=== PATIENT | female | born 1995 | race American Indian/Alaskan Native ===

== ENCOUNTER 2020-06-14 11:59 | Emergency (ER) | payer SELFPAY ==
[2020-06-14 12:31] VITALS: BP 126/92
--- NOTE | 2020-06-14 12:37 | Emergency Department Report ---
ED Lower Extremity HPI - General Chief Complaint: Extremity Injury, Lower Stated Complaint: ANKLE PAIN Time Seen by Provider: 06/14/20 12:29 Source: patient Mode of arrival: Ambulatory Limitations: No Limitations - History of Present Illness Initial Comments: This is a 25-year-old female nontoxic, well nourished in appearance, no acute signs of distress presents to the ED with c/o of left ankle pain. Patient stated had she twisted it 3 days ago. Patient denies any new trauma or injuries. Denies decreased ROM, joint swelling, redness, or abnormal gait. Denies any fever, chills, nausea, vomiting, headache, stiff neck, chest pain or shortness of breath. Patient denies any numbness or tingling. Denies any allergies. MD Complaint: ankle injury -: days(s) Injury: Ankle: Left Type of Injury: inversion Severity: mild Severity scale (0 -10): 8 Improves With: immobilization Worsens With: weight bearing, movement, palpation Associated Symptoms: swelling, able to partially bear weight. denies: snap/pop sensation, numbness, tingling, unable to bear weight - Related Data Previous Rx's Medication Instructions Recorded Last Taken Type Naproxen 500 mg PO Q12H PRN #12 tablet 06/14/20 Unknown Rx Allergies Allergy/AdvReac Type Severity Reaction Status Date / Time No Known Allergies Allergy Verified 06/14/20 12:01 ED Review of Systems ROS: Stated complaint: ANKLE PAIN Other details as noted in HPI Constitutional: denies: chills, fever Eyes: denies: eye pain, eye discharge, vision change ENT: denies: ear pain, throat pain Respiratory: denies: cough, shortness of breath, wheezing Cardiovascular: denies: chest pain, palpitations Endocrine: no symptoms reported Gastrointestinal: denies: abdominal pain, nausea, diarrhea Genitourinary: denies: urgency, dysuria, discharge Musculoskeletal: denies: back pain, joint swelling, arthralgia Skin: denies: rash, lesions Neurological: denies: headache, weakness, paresthesias Psychiatric: denies: anxiety, depression Hematological/Lymphatic: denies: easy bleeding, easy bruising ED Past Medical Hx - Past Medical History Previous Medical History?: No - Surgical History Past Surgical History?: Yes Additional Surgical History: left knee surgery - Social History Smoking Status: Current Every Day Smoker - Medications Home Medications: Home Medications Medication Instructions Recorded Confirmed Last Taken Type Naproxen 500 mg PO Q12H PRN #12 tablet 06/14/20 Unknown Rx ED Physical Exam - General Limitations: No Limitations General appearance: alert, in no apparent distress - Head Head exam: Present: atraumatic, normocephalic - Neck Neck exam: Present: normal inspection, full ROM. Absent: tenderness, meningismus, lymphadenopathy - Extremities Exam Extremities exam: Present: full ROM, tenderness, normal capillary refill, other (negative mchugh test, left). Absent: joint swelling, calf tenderness - Expanded Lower Extremity Exam Left Hip exam: Present: normal inspection, full ROM. Absent: tenderness, swelling Upper Leg exam: Present: normal inspection, full ROM. Absent: tenderness, swelling Knee exam: Present: normal inspection, full ROM. Absent: tenderness, swelling Lower Leg exam: Present: normal inspection, full ROM. Absent: tenderness, swelling Ankle exam: Present: full ROM, tenderness, swelling. Absent: abrasion, laceration, ecchymosis, deformity, crepidus, dislocation, erythema, anterior draw sign Foot/Toe exam: Present: full ROM. Absent: tenderness, swelling Neuro vascular tendon exam: Present: no vascular compromise Gait: Positive: observed and limited by pain - Back Exam Back exam: Present: normal inspection, full ROM. Absent: tenderness, CVA tenderness (R), CVA tenderness (L), muscle spasm, paraspinal tenderness, vertebral tenderness, rash noted - Neurological Exam Neurological exam: Present: alert, oriented X3, normal gait - Psychiatric Psychiatric exam: Present: normal affect, normal mood - Skin Skin exam: Present: warm, dry, intact, normal color. Absent: rash ED Course Vital Signs 06/14/20 06/14/20 12:29 12:44 Temperature 98.2 F Pulse Rate 112 H 100 H Respiratory 20 Rate Blood Pressure 126/92 O2 Sat by Pulse 100 Oximetry - Reevaluation(s) Reevaluation #1: 06/14/20 12:35 Patient is speaking in full sentences with no signs of distress noted. ED Lower Extremity MDM - Radiology Data Referring Physician: BRYAN BATISTA Patient Name: RODRICK GRAVES Date of : 1995 Sex: Female Report Date: 2020-06-14 Report Status: Finalized [facility] [address] [place] [address] XRay Report Signed Patient: RODRICK GRAVES MR#: [id number] : 1995 Acct:[id number] Age/Sex: 25 / F ADM Date: 06/14/20 Loc: ED Attending Dr: Ordering Physician: BRYAN BATISTA NP Date of Service: 06/14/20 Procedure(s): XR ankle 3+V LT Accession Number(s): [id number] cc: BRYAN BATISTA NP Fluoro Time In Minutes: LEFT ANKLE 3 VIEW(S) INDICATION / CLINICAL INFORMATION: ankle pain COMPARISON: None available. FINDINGS: BONES / JOINT(S): Small inferior calcaneal enthesophyte No definite acute fracture or subluxation. No significant arthritis. SOFT TISSUES: No significant abnormality. ADDITIONAL FINDINGS: None. IMPRESSION: 1. No definite acute fracture or dislocation. Consider further evaluation as clinically warranted. Signer Name: Rosa M Aburto MD Signed: 06/14/2020 1:14 PM Workstation Name: [email or web address] Transcribed By: RH Dictated By: ROSA M ABURTO III Electronically Authenticated By: ROSA M ABURTO III Signed Date/Time: 06/14/20 1314 DD/ 1312 TD/TT: - Medical Decision Making This is a 25-year-old female that presents with left ankle sprain. Patient is stable and was examined by me. Xray has been told to the patient with no questions noted by the patient. No joint effusion, no redness, no decreased ROM. Normal gait. received LASHAUN wrap. Patient was instructed to Follow-up with a orthopedic doctor in 3-5 days or if symptoms worsen and continue return to emergency room as soon as possible. At time of discharge, the patient does not seem toxic or ill in appearance. No acute signs of distress noted. Patient agrees to discharge treatment plan of care. No further questions noted by the patient. Critical care attestation.: If time is entered above; I have spent that time in minutes in the direct care of this critically ill patient, excluding procedure time. ED Disposition Clinical Impression: Left ankle sprain Qualifiers: Encounter type: initial encounter Involved ligament of ankle: unspecified ligament Qualified Code(s): S93.402A - Sprain of unspecified ligament of left ankle, initial encounter Disposition: - TO HOME OR SELFCARE Is pt being admited?: No Does the pt Need Aspirin: No Condition: Stable Instructions: Ankle Sprain (ED), RICE Therapy (ED) Additional Instructions: Follow-up with a orthopedic doctor in 3-5 days or if symptoms worsen and continue return to the emergency department as soon as possible. No physical activity until cleared by orthopedic doctor. Prescriptions: Naproxen 500 mg PO Q12H PRN #12 tablet PRN Reason: Pain , Severe (7-10) Referrals: PRIMARY CARE, [Primary Care Provider] - 3-5 Days ROSA M KELLER MD [Staff Physician] - 3-5 Days Forms: Work/School Release Form(ED)
--- NOTE | 2020-06-14 13:19 | XRay Report ---
LEFT ANKLE 3 VIEW(S) INDICATION / CLINICAL INFORMATION: ankle pain COMPARISON: None available. FINDINGS: BONES / JOINT(S): Small inferior calcaneal enthesophyte No definite acute fracture or subluxation. No significant arthritis. SOFT TISSUES: No significant abnormality. ADDITIONAL FINDINGS: None. IMPRESSION: 1. No definite acute fracture or dislocation. Consider further evaluation as clinically warranted. Signer Name: Nemesio Aburto MD Signed: 06/14/2020 1:14 PM Workstation Name: [id number]
== END 2020-06-14 14:01 | disposition home or self-care (01) ==
LOC: ED 11:59
DX: S93.402A Sprain of unspecified ligament of left ankle, initial encounter (principal); F17.200 Nicotine dependence, unspecified, uncomplicated; X50.9XXA Other and unspecified overexertion or strenuous movements or postures, initial encounter; Y93.89 Activity, other specified; Y92.89 Other specified places as the place of occurrence of the external cause; Y99.8 Other external cause status
CPT/HCPCS: 99283

== ENCOUNTER 2020-07-30 22:07 | Emergency (ER) | payer SELFPAY ==
--- NOTE | 2020-07-31 00:21 | XRay Report ---
CHEST PA AND LATERAL VIEWS INDICATION: MAIN. COMPARISON: None FINDINGS: Support devices: None Heart: Normal Lungs/Pleura: No acute pulmonary or pleural findings. IMPRESSION: 1. No significant abnormality. Signer Name: Carlos Davis MD Signed: 07/31/2020 12:16 AM Workstation Name: [id number]
[2020-07-31] MEDS ORDERED: ACETAMINOPHEN 325 MG TAB PO ONE (02:03)
--- NOTE | 2020-07-31 04:11 | Emergency Department Report ---
- General Chief Complaint: Chest Pain Stated Complaint: CHEST PAIN HEADACHE HIGH HR HBP Source: patient Mode of arrival: Ambulatory Limitations: No Limitations - History of Present Illness Initial Comments: Patient is a 25-year-old -Niue[place] female with a history of heavy tobacco abuse who presents to the ED with complaint of acute onset persistent nasal and sinus congestion, frontal sinus pressure and headache, persistent dry cough with wheezing intermittently for the last 1 week, worse in the last 2 days. Patient also complains of pleuritic chest pain with every episode of cough. Patient d enies fever, chills, nausea, vomiting, sore throat, dizziness, syncope, shortness of breath, abdominal pain, diaphoresis, change in vision, back pain, dysuria, urinary frequency and urgency or diarrhea. MD Complaint: cough, rhinorrhea, nasal congestion, sinus pain, other (Pleuritic chest pain) -: Sudden, week(s) (1) Severity: moderate Severity scale (0 -10): 4 Quality: sharp, aching Consistency: intermittent Improves With: nothing Worsens With: nothing Associated Symptoms: denies other symptoms, headache, rhinorrhea, nasal congestion, cough, chest pain. denies: fever, chills, myalgias, diaphoresis, sore throat, stiff neck, shortness of breath, abdominal pain, vomiting, diarrhea, rash, right sweats, weight loss, hoarseness Treatments Prior to Arrival: none - Related Data Previous Rx's Medication Instructions Recorded Last Taken Type Naproxen 500 mg PO Q12H PRN #12 tablet 06/14/20 Unknown Rx Azithromycin [Zithromax Z-CARI] 250 mg PO DAILY #6 tablet 07/31/20 Unknown Rx Benzonatate [Tessalon Perles] 100 mg PO Q8HR #30 capsule 07/31/20 Unknown Rx Ibuprofen [Motrin] 800 mg PO Q8HR PRN #20 tablet 07/31/20 Unknown Rx predniSONE [Deltasone] 40 mg PO QDAY #10 tab 07/31/20 Unknown Rx Allergies Allergy/AdvReac Type Severity Reaction Status Date / Time No Known Allergies Allergy Verified 06/14/20 12:01 ED Review of Systems ROS: Stated complaint: CHEST PAIN HEADACHE HIGH HR HBP Other details as noted in HPI Constitutional: denies: chills, fever Eyes: denies: eye pain, eye discharge, vision change ENT: congestion. denies: ear pain, throat pain, dental pain, hearing loss Respiratory: cough. denies: shortness of breath, SOB with exertion, wheezing Cardiovascular: denies: chest pain, palpitations Endocrine: no symptoms reported Gastrointestinal: denies: abdominal pain, nausea, diarrhea Genitourinary: denies: urgency, dysuria, discharge Musculoskeletal: denies: back pain, joint swelling, arthralgia Skin: denies: rash, lesions Neurological: headache. denies: weakness, paresthesias Psychiatric: denies: anxiety, depression Hematological/Lymphatic: denies: easy bleeding, easy bruising ED Past Medical Hx - Past Medical History Previous Medical History?: No - Surgical History Past Surgical History?: Yes Additional Surgical History: left knee surgery - Social History Smoking Status: Current Every Day Smoker Substance Use Type: None - Medications Home Medications: Home Medications Medication Instructions Recorded Confirmed Last Taken Type Naproxen 500 mg PO Q12H PRN #12 tablet 06/14/20 Unknown Rx Azithromycin [Zithromax Z-CARI] 250 mg PO DAILY #6 tablet 07/31/20 Unknown Rx Benzonatate [Tessalon Perles] 100 mg PO Q8HR #30 capsule 07/31/20 Unknown Rx Ibuprofen [Motrin] 800 mg PO Q8HR PRN #20 tablet 07/31/20 Unknown Rx predniSONE [Deltasone] 40 mg PO QDAY #10 tab 07/31/20 Unknown Rx ED Physical Exam - General Limitations: No Limitations General appearance: alert, in no apparent distress - Head Head exam: Present: atraumatic, normocephalic, normal inspection - Eye Eye exam: Present: normal appearance, PERRL, EOMI Pupils: Present: normal accommodation - ENT ENT exam: Present: normal orophraynx, mucous membranes moist, TM's normal bilaterally, normal external ear exam, other (Grossly congested nasal passages; palpable frontal sinus tenderness) - Neck Neck exam: Present: normal inspection, full ROM. Absent: tenderness, lymp hadenopathy - Respiratory Respiratory exam: Present: normal lung sounds bilaterally. Absent: respiratory distress, wheezes, rhonchi, stridor, chest wall tenderness, accessory muscle use - Cardiovascular Cardiovascular Exam: Present: normal rhythm, tachycardia, normal heart sounds. Absent: systolic murmur, diastolic murmur, rubs, gallop - GI/Abdominal GI/Abdominal exam: Present: soft, normal bowel sounds. Absent: distended, tenderness, rebound, hyperactive bowel sounds, hypoactive bowel sounds, organomegaly - Extremities Exam Extremities exam: Present: normal inspection, full ROM, normal capillary refill - Back Exam Back exam: Present: normal inspection, full ROM. Absent: tenderness, CVA tenderness (R), CVA tenderness (L), muscle spasm, paraspinal tenderness - Neurological Exam Neurological exam: Present: alert, oriented X3, CN II-XII intact, normal gait, reflexes normal - Psychiatric Psychiatric exam: Present: normal affect, normal mood - Skin Skin exam: Present: warm, dry, intact, normal color. Absent: rash ED Course Vital Signs 07/30/20 23:17 Temperature 97.9 F Pulse Rate 109 H Respiratory 16 Rate Blood Pressure 132/98 O2 Sat by Pulse 100 Oximetry ED Medical Decision Making - Radiology Data Radiology results: report reviewed, image reviewed Findings [address] [address] XRay Report Signed Patient: RODRICK GRAVES MR#: [id number] : 1995 Acct:[id number] Age/Sex: 25 / F ADM Date: 07/30/20 Loc: ED Attending Dr: Ordering Physician: ED MD SPENSER Date of Service: 07/30/20 Procedure(s): XR chest routine 2V Accession Number(s): [id number] cc: ED MD SPENSER Fluoro Time In Minutes: CHEST PA AND LATERAL VIEWS INDICATION: MAIN. COMPARISON: None FINDINGS: Support devices: None Heart: Normal Lungs/Pleura: No acute pulmonary or pleural findings. IMPRESSION: 1. No significant abnormality. Signer Name: Carlos Davis MD Signed: 07/31/2020 12:16 AM Workstation Name: [id number] Transcribed By: TM Dictated By: Carlos Davis MD Electronically Authenticated By: Carlos Davis MD Signed Date/Time: 07/31/2015 DD/ 001 TD/TT: - Medical Decision Making This is a 25-year-old -Niue[place] female with a history of heavy tobacco abuse who presents to the ED with complaint of acute onset persistent nasal and sinus congestion, frontal sinus pressure and headache, persistent dry cough with wheezing intermittently for the last 1 week, worse in the last 2 days. Patient also complains of pleuritic chest pain with every episode of cough. In the ED, patient is alert and oriented x3 and is not in distress. Chest x-ray shows no acute cardiopulmonary abnormalities or pneumonitis. Patient was discharged home on medications and advised to follow-up with her primary care physician in 5 to 7 days for reevaluation or return to the ED immediately if symptoms get worse. - Differential Diagnosis Bronchitis; pneumonia; sinusitis; URI; Critical care attestation.: If time is entered above; I have spent that time in minutes in the direct care of this critically ill patient, excluding procedure time. ED Disposition Clinical Impression: Acute non-recurrent frontal sinusitis, Acute upper respiratory infection Acute bronchitis Qualifiers: Bronchitis organism: other organism Qualified Code(s): J20.8 - Acute bronchitis due to other specified organisms Disposition: DC- TO HOME OR SELFCARE Is pt being admited?: No Does the pt Need Aspirin: No Condition: Stable Instructions: Acute Bronchitis (ED), Acute Bacterial Rhinosinusitis (ED), Upper Respiratory Infection (ED) Additional Instructions: Chest x-ray shows no acute cardiopulmonary abnormalities or pneumonitis. Therefore take medications as advised, drink plenty of fluids and follow-up with your primary care physician in 5 to 7 days for reevaluation. Return to the ED immediately if symptoms get worse. Consider quitting tobacco smoking habit. Prescriptions: predniSONE [Deltasone] 40 mg PO QDAY #10 tab Ibuprofen [Motrin] 800 mg PO Q8HR PRN #20 tablet PRN Reason: Pain , Severe (7-10) Benzonatate [Tessalon Perles] 100 mg PO Q8HR #30 capsule Azithromycin [Zithromax Z-CARI] 250 mg PO DAILY #6 tablet Referrals: [facility] [Provider Group] - 3-5 Days Time of Disposition: 04:11 Print Language: TURKMEN
[2020-07-31 04:41] VITALS: BP 127/83
== END 2020-07-31 04:41 | disposition home or self-care (01) ==
LOC: ED 22:07
DX: J01.10 Acute frontal sinusitis, unspecified (principal); J20.9 Acute bronchitis, unspecified; F17.200 Nicotine dependence, unspecified, uncomplicated; Z79.899 Other long term (current) drug therapy
CPT/HCPCS: 71046; 93005; 99283

== ENCOUNTER 2021-03-30 17:47 | Emergency (ER) | payer SELFPAY ==
[2021-03-30 19:26] VITALS: BP 112/67
--- NOTE | 2021-03-30 19:58 | Emergency Department Report ---
Upper Extremity - HPI Chief Complaint: Extremity Injury, Upper Stated Complaint: RIGHT SHOULDER PAIN, LEFT FINGER PAIN Time Seen by Provider: 03/30/21 19:54 Upper Extremity: Right Shoulder Occurred When: 1 Day Mechanism: Other (lifting) Symptoms: Yes Pain with Movement, Yes Limited Range of Movement, No Deformity, No Numbness, No Weakness, No Swelling, No Bruising/Ecchymosis, No Laceration or Abrasion Other History: Patient presents to the ER today with complaints of right shoulder pain. Patient states that the pain started last night while she was at work. She states that she had been repeatedly lifted and pans of shaking at work when it started hurting. She is also feeling a popping sensation in her shoulder. Patient states that when she woke up this morning she could not hardly lift her shoulder. She states she has been taking ibuprofen without much relief of pain. She states that she did dislocate once when she was a child but did not have to have any surgery. She reports no other symptoms at this time. ED Review of Systems ROS: Stated complaint: RIGHT SHOULDER PAIN, LEFT FINGER PAIN Other details as noted in HPI Comment: All other systems reviewed and negative Constitutional: denies: chills, fever Eyes: denies: eye pain, eye discharge, vision change ENT: denies: ear pain, throat pain, dental pain, hearing loss, epistaxis, congestion Respiratory: denies: cough, orthopnea, shortness of breath, SOB with exertion, SOB at rest, wheezing Cardiovascular: denies: chest pain, palpitations, dyspnea on exertion, edema, syncope, paroxysmal nocturnal dyspnea Gastrointestinal: denies: abdominal pain, nausea, vomiting, diarrhea, constipation, hematemesis, melena, hematochezia Genitourinary: denies: urgency, dysuria, frequency, hematuria, discharge, abnormal menses, dyspareunia Musculoskeletal: arthralgia Skin: denies: rash, lesions, change in color, change in hair/nails, pruritus Neurological: denies: headache, weakness, numbness, paresthesias, confusion, abnormal gait, vertigo Psychiatric: denies: anxiety, depression, auditory hallucinations, visual hallucinations, homicidal thoughts, suicidal thoughts Hematological/Lymphatic: denies: easy bleeding, swollen glands ED Past Medical Hx - Past Medical History Previous Medical History?: No - Surgical History Past Surgical History?: Yes Additional Surgical History: left knee surgery - Social History Smoking Status: Current Every Day Smoker Substance Use Type: None, Marijuana - Medications Home Medications: Home Medications Medication Instructions Recorded Confirmed Last Taken Type Ketorolac [Toradol] 10 mg PO Q6H PRN #20 tablet 03/30/21 Unknown Rx methOCARBAMOL [Robaxin TAB] 500 mg PO Q6H PRN #30 tablet 03/30/21 Unknown Rx Upper Extremity Exam - Exam General: Vital signs noted. No distress. Alert and acting appropriately. Head and Torso: No HEENT Abnormality, No Neck Tenderness, No Chest/Lungs Abnormality, No Abdominal Tenderness, No Back Tenderness Shoulder Exam: Yes Shoulder Tenderness (Moderate tenderness to palpation diffusely about the right shoulder), Yes AC Joint Tenderness (Right shoulder), No Clavicle Tenderness, No Normal Range of Motion in Shoulder (Range of motion of the shoulder reduced to about 90 degrees abduction.), No Shoulder Deformity Arm Exam: No Arm/Humerus Tenderness, No Arm Deformity Elbow: Yes Normal Range of Motion in Elbow, No Elbow Tenderness, No Elbow Deformity Forearm: No Forearm Tenderness, No Forearm Deformity, No Pain with Pronation, No Pain with Supination Wrist: Yes Normal ROM in Wrist, No Wrist Tenderness, No Wrist Deformity, No Snuffbox Tenderness, No Pain with Axial Thumb Compression Hand: Yes Normal ROM in Digit(s), No Hand Tenderness, No Hand Deformity, No Digit Tenderness, No Digit(s) Deformity, No Tendon Dysfunction CMS Exam: Yes Normal Distal Pulses, Yes Normal Capillary Refill, Yes Normal Distal Sensation, No Broken Skin ED Course Vital Signs 03/30/21 19:23 Temperature 98.1 F Pulse Rate 94 H Respiratory 18 Rate Blood Pressure 112/67 O2 Sat by Pulse 100 Oximetry ED Medical Decision Making - Radiology Data Radiology results: report reviewed Patient: RODRICK GRAVES MR#: [id number] : 1995 Acct:[id number] Age/Sex: 25 / F ADM Date: 03/30/21 Loc: ED Attending Dr: Ordering Physician: PONCHO PLATA Date of Service: 03/30/21 Procedure(s): XR shoulder 2+V RT Accession Number(s): [id number] cc: PONCHO PLATA Fluoro Time In Minutes: CLINICAL DATA: Right shoulder pain TECHNICAL DATA: AP internal, AP external, and Y views were obtained of the shoulder. FINDINGS: There is no acute fracture. The glenoid fossa humeral head articulation is normal. There is no acromioclavicular joint widening or offset. The coracoclavicular distance is normal. There are no significant degenerative changes. IMPRESSION: No acute radiographic abnormality. Signer Name: Lars Seay MD Signed: 03/30/2021 8:42 PM Workstation Name: [id number] Transcribed By: WG Dictated By: Lars Seay MD Electronically Authenticated By: Lars Seay MD Signed Date/Time: 03/30/212041 DD/ 41 TD/TT: Critical care attestation.: If time is entered above; I have spent that time in minutes in the direct care of this critically ill patient, excluding procedure time. ED Disposition Clinical Impression: Sprain of shoulder, right Disposition: DC-01 TO HOME OR SELFCARE Is pt being admited?: No Does the pt Need Aspirin: No Condition: Stable Instructions: Shoulder Sprain Additional Instructions: Take the toradol and the muscle relaxer as prescribed. Use the sling for no more than 2 days. Follow up with the grain origination specialist in 1 week if symptoms persist. Return to ED if worse. Prescriptions: methOCARBAMOL [Robaxin TAB] 500 mg PO Q6H PRN #30 tablet PRN Reason: Pain Ketorolac [Toradol] 10 mg PO Q6H PRN #20 tablet PRN Reason: Pain Referrals: ROSA M KELLER MD [Staff Physician] - 3-5 Days Forms: Work/School Release Form(ED) Time of Disposition: 20:57
--- NOTE | 2021-03-30 20:47 | XRay Report ---
CLINICAL DATA: Right shoulder pain TECHNICAL DATA: AP internal, AP external, and Y views were obtained of the shoulder. FINDINGS: There is no acute fracture. The glenoid fossa humeral head articulation is normal. There is no acromi oclavicular joint widening or offset. The coracoclavicular distance is normal. There are no significa nt degenerative changes. IMPRESSION: No acute radiographic abnormality. Signer Name: Lars Seay MD Signed: 03/30/2021 8:42 PM Workstation Name: [id number]
== END 2021-03-30 21:21 | disposition home or self-care (01) ==
LOC: ED 17:47
DX: S43.491A Other sprain of right shoulder joint, initial encounter (principal); F17.200 Nicotine dependence, unspecified, uncomplicated; F12.90 Cannabis use, unspecified, uncomplicated; Z98.890 Other specified postprocedural states; X50.0XXA Overexertion from strenuous movement or load, initial encounter; Y93.89 Activity, other specified; Y92.89 Other specified places as the place of occurrence of the external cause; Y99.8 Other external cause status
CPT/HCPCS: 99283

== ENCOUNTER 2021-09-19 20:44 | Emergency (ER) | payer SELFPAY ==
[2021-09-19 20:50] VITALS: BP 134/99
--- NOTE | 2021-09-19 21:29 | XRay Report ---
RIGHT ANKLE 4 VIEW(S) INDICATION / CLINICAL INFORMATION: ankle pain and swelling COMPARISON: None available. FINDINGS: BONES / JOINT(S): Oblique, moderately displaced fracture of the distal fibula. There is lateral angul ation of the distal fracture fragment and moderate displacement by approximately 0.7 cm. There is an avulsion fracture of the medial malleolus tip with widening of the medial clear space which measures approximately 1.4 cm. There is medial subluxation of the distal tibial plafond in relation to the julian us suggesting ligamentous disruption.. Follow-up is recommended given the severity of injury. SOFT TISSUES: Moderate soft tissue swelling about the ankle joint ADDITIONAL FINDINGS: None. Signer Name: Salvador Cheema MD Signed: 09/19/2021 9:24 PM Workstation Name: [id number]
[2021-09-19] MEDS ORDERED: MORPHINE 4 MG/1 ML INJ IM STA (21:39)
--- NOTE | 2021-09-19 21:40 | Emergency Department Report ---
ED Lower Extremity HPI - General Chief Complaint: Extremity Injury, Lower Stated Complaint: ANKLE PAIN Time Seen by Provider: 09/19/21 20:49 Source: patient Mode of arrival: Wheelchair Limitations: No Limitations - History of Present Illness Initial Comments: 26-year-old -[place] female was having good time in the yesterday and can with alcohol consumption resulting in a loss of balance and falling on the ground level an unknown fashion possibly twisting resulting in pain. She is noted some swelling to the right ankle ambulates ambulate. No numbness, no tingling pain is dull and throbbing 10 out of 10 MD Complaint: ankle injury -: Sudden (Yesterday) - Related Data Previous Rx's Medication Instructions Recorded Last Taken Type Ketorolac [Toradol] 10 mg PO Q6H PRN #20 tablet 03/30/21 Unknown Rx methOCARBAMOL [Robaxin TAB] 500 mg PO Q6H PRN #30 tablet 03/30/21 Unknown Rx Oxycodone HCl/Acetaminophen 1 each PO Q6HR PRN #14 tablet 09/19/21 Unknown Rx [Percocet 10/325 mg] Allergies Allergy/AdvReac Type Severity Reaction Status Date / Time No Known Allergies Allergy Verified 09/19/21 20:50 ED Review of Systems ROS: Stated complaint: ANKLE PAIN Other details as noted in HPI ED Past Medical Hx - Past Medical History Previous Medical History?: No - Surgical History Additional Surgical History: left knee surgery - Social History Smoking Status: Current Every Day Smoker Substance Use Type: None, Marijuana - Medications Home Medications: Home Medications Medication Instructions Recorded Confirmed Last Taken Type Ketorolac [Toradol] 10 mg PO Q6H PRN #20 tablet 03/30/21 Unknown Rx methOCARBAMOL [Robaxin TAB] 500 mg PO Q6H PRN #30 tablet 03/30/21 Unknown Rx Oxycodone HCl/Acetaminophen 1 each PO Q6HR PRN #14 tablet 09/19/21 Unknown Rx [Percocet 10/325 mg] ED Physical Exam - General Limitations: No Limitations ED Course Vital Signs 09/19/21 20:46 Temperature 98.6 F Pulse Rate 99 H Respiratory 18 Rate Blood Pressure 134/99 [Right] O2 Sat by Pulse 98 Oximetry - Orthopedic Splinting/Casting Injury #1 Side: right Lower Extremity Injury Location: ankle Lower Extremity Immobilizer: posterior splint, stirrup splint Other Orthopedic Equipment: crutches ED Lower Extremity MDM - Radiology Data Radiology results: report reviewed [facility] [address] [place] [address] XRay Report Signed Patient: RODRICK GRAVES MR#: [id number] : 1995 Acct:[id number] Age/Sex: 26 / F ADM Date: 09/19/21 Loc: ED Attending Dr: Ordering Physician: KAPIL MOSELEY Date of Service: 09/19/21 Procedure(s): XR ankle 3+V RT Accession Number(s): [id number] cc: KAPIL MOSELEY Fluoro Time In Minutes: RIGHT ANKLE 4 VIEW(S) INDICATION / CLINICAL INFORMATION: ankle pain and swelling COMPARISON: None available. FINDINGS: BONES / JOINT(S): Oblique, moderately displaced fracture of the distal fibula. There is lateral angulation of the distal fracture fragment and moderate displacement by approximately 0.7 cm. There is an avulsion fracture of the medial malleolus tip with widening of the medial clear space which measures approximately 1.4 cm. There is medial subluxation of the distal tibial plafond in relation to the talus suggesting ligamentous disruption.. Follow-up is recommended given the severity of injury. SOFT TISSUES: Moderate soft tissue swelling about the ankle joint ADDITIONAL FINDINGS: None. Signer Name: Salvador Cheema MD Signed: 09/19/2021 9:24 PM Workstation Name: [id number] Transcribed By: SB Dictated By: SALVADOR CHEEMA MD Electronically Authenticated By: SALVADOR CHEEMA MD Signed Date/Time: 09/19/212123 DD/ 22 TD/TT: - Medical Decision Making 18-year-old [place] female status post mechanical trip and fall due to possible inebriation resulting in pain and swelling to the ankle was found to have a fracture of the of the fibula and the medial malleolus with some widening suggestive of a ligamentous injury. Plan is to have her follow-up with orthopedic for definitive treatment and management of the fracture was secured with a splint and crutches today Critical care attestation.: If time is entered above; I have spent that time in minutes in the direct care of this critically ill patient, excluding procedure time. ED Disposition Clinical Impression: Ankle fracture, right Disposition: 01 HOME / SELF CARE / HOMELESS Is pt being admited?: No Does the pt Need Aspirin: No Condition: Stable Instructions: Ankle Fracture, Cast or Splint Care, Adult, Complex Ankle Fracture Prescriptions: Oxycodone HCl/Acetaminophen [Percocet 10/325 mg] 1 each PO Q6HR PRN #14 tablet PRN Reason: Pain Referrals: ROSA M KELLER MD [Staff Physician] - 3-5 Days
== END 2021-09-19 22:30 | disposition home or self-care (01) ==
LOC: ED 20:44
DX: S82.831A Other fracture of upper and lower end of right fibula, initial encounter for closed fracture (principal); W18.30XA Fall on same level, unspecified, initial encounter; Y93.89 Activity, other specified; Y92.89 Other specified places as the place of occurrence of the external cause; Y99.8 Other external cause status
CPT/HCPCS: 29515; 73610; 96372; 99283; J2270